=== PATIENT | female | born 1975 | race Caucasian/White ===

== ENCOUNTER → 2024-04-08 12:48 | Outpatient (REF) | payer BC, SELFPAY | LOC: HWWDC 12:48 | PROVIDERS: ATTENDING PHYSICIAN Internal Medicine | DX: Z12.31 Encounter for screening mammogram for malignant neoplasm of breast (principal) | CPT/HCPCS: 77063; 77067 ==

== ENCOUNTER → 2025-03-03 09:48 | Outpatient (REF) | payer BC, SELFPAY | LOC: HWRAD 09:48 | PROVIDERS: ATTENDING PHYSICIAN Urology; FAMILY PHYSICIAN Hospitalist | DX: N30.10 Interstitial cystitis (chronic) without hematuria (principal); M62.89 Other specified disorders of muscle | CPT/HCPCS: 76770; 76856 ==

== ENCOUNTER → 2025-04-09 12:56 | Outpatient (REF) | payer BC, SELFPAY | LOC: HWWDC 12:56 | PROVIDERS: ATTENDING PHYSICIAN Obstetrics & Gynecology Gynecology; FAMILY PHYSICIAN Hospitalist | DX: Z12.31 Encounter for screening mammogram for malignant neoplasm of breast (principal) | CPT/HCPCS: 77063; 77067 ==